=== PATIENT | female | born 2000 | race Caucasian/White ===

== ENCOUNTER 2022-08-30 10:06 | Emergency (ER) | payer SELFPAY ==
[2022-08-30 10:30] VITALS: BP 110/73; PULSE 62; RESP 20; TEMP 36.8; O2SAT 98; BMI 19.1
--- NOTE | 2022-08-30 11:26 | ED.NURSE ---
pt decided to leave without being seeing by ED doctor
== END 2022-08-30 12:49 | disposition left against medical advice (07) ==
PROVIDERS: Emergency Provider Emergency Medicine Emergency Medical Services
DX: Z53.21 Procedure and treatment not carried out due to patient leaving prior to being seen by health care provider (principal)

== ENCOUNTER 2023-03-17 19:20 | Outpatient (CLI) | payer BC, SELFPAY | END 2023-03-17 19:21 | disposition home or self-care (01) | LOC: AMB 03-20 10:42 | PROVIDERS: Visit Provider Family Medicine | DX: R07.89 Other chest pain (principal) | CPT/HCPCS: A0425; A0427 ==

== ENCOUNTER 2023-03-17 19:54 | Emergency (ER) | payer BC, SELFPAY ==
[2023-03-17] VITALS (18 sets, daily range): BP systolic 101–131; BP diastolic 53–69; PULSE 65–87; RESP 16; TEMP 36.7; O2SAT 95–100
--- NOTE | 2023-03-17 20:04 | ED.CHESTPAIN ---
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 She did a step aerobics class, completed at 6:30 p.m. and noticed some left chest pain that was sharp. It was in left side of her chest when into the left breast around her side, felt it in her shoulder and some in her neck. She did not feel short of breath with it but it did hurt with breathing. She has never had anything like this before. She has done this exercise class before. Pain resolved, lasted about 45 minutes. She did not take anything for it. She had COVID last year but has not been ill with any cough or cold symptoms. She was not short of breath with it. She had just completed exercise so her heart did feel like it was going fast but not any more so than it normally would. She is a nonsmoker. She did smoke some marijuana over the weekend and had alcohol. She does do this socially but not significantly. No illicit drug use otherwise. No abdominal symptoms. Patient is currently menstruating. MD complaint: chest pain Related Data Home Medications Medication Instructions Recorded Confirmed No Known Home Medications 08/30/22 09/26/22 Allergies Allergy/AdvReac Type Severity Reaction Status Date / Time No Known Drug Allergies Allergy Verified 09/26/22 16:09 Review of Systems Status of ROS Reports: 10 or more systems reviewed and unremarkable except as noted in History and below [facility] Social History Smoking Status: Never smoker Do you use any of these nicotine containing products: None Second hand tobacco smoke exposure: No How often do you have a drink containing alcohol: monthly or less How many standard drinks containing alcohol do you have on a typical day: 3 or 4 How often do you have six or more drinks on one occasion: Never AUDIT-C Alcohol total score: 2 Non-prescribed substance use: marijuana (any form) service: No Exam Const Vital Signs, click to edit/add: Vital Signs - 24 hr 03/17/23 20:00 03/17/23 20:22 03/17/23 20:34 Temperature 98.1 F Pulse Rate 83 78 Pulse Rate [Left Pulse Oximeter] 79 Respiratory Rate 16 Blood Pressure Blood Pressure [Right Upper Arm] 106/69 Pulse Oximetry 100 100 100 Oxygen Delivery Method Room Air 03/17/23 20:35 03/17/23 20:45 03/17/23 21:03 Temperature Pulse Rate 79 74 Pulse Rate [Left Pulse Oximeter] Respiratory Rate Blood Pressure 105/64 105/53 L Blood Pressure [Right Upper Arm] Pulse Oximetry 100 95 Oxygen Delivery Method 03/17/23 21:07 03/17/23 21:15 03/17/23 21:30 Temperature Pulse Rate 87 73 75 Pulse Rate [Left Pulse Oximeter] Respiratory Rate Blood Pressure Blood Pressure [Right Upper Arm] Pulse Oximetry 100 100 100 Oxygen Delivery Method 03/17/23 21:31 03/17/23 21:32 03/17/23 21:45 Temperature Pulse Rate 69 73 74 Pulse Rate [Left Pulse Oximeter] Respiratory Rate Blood Pressure 105/67 Blood Pressure [Right Upper Arm] Pulse Oximetry 100 100 100 Oxygen Delivery Method 03/17/23 22:04 03/17/23 22:05 03/17/23 22:15 Temperature Pulse Rate 79 69 Pulse Rate [Left Pulse Oximeter] Respiratory Rate Blood Pressure 131/55 L Blood Pressure [Right Upper Arm] Pulse Oximetry 99 100 Oxygen Delivery Method Documenting provider has reviewed patient's vital signs: yes Common normals: no apparent distress, average body habitus, oriented x3, no limitations, healthy appearing, alert and well nourished General appearance: cooperative, comfortable, well kempt and well developed Nutritional appearance: thin HENMT Common normals: normocephalic, head/scalp atraumatic, hearing grossly normal bilaterally, external ears normal, external nose normal, nasal mucous membranes and turbinates normal and moist oral mucous membranes Head and scalp: normocephalic and atraumatic Nose: external nose normal and nasal mucous membranes and turbinates normal External ear: external ears normal Eye Common normals: PERRL, EOMs intact bilaterally, conjunctivae normal and no scleral icterus Conjunctiva: conjunctiva(e) normal Pupil: PERRL Neck & C-Spine Common normals: full ROM, no lymphadenopathy, supple, no meningeal signs, no JVD and thyroid normal Thyroid: thyroid normal Chest Common normals: inspection of chest normal and palpation of chest normal Resp Common normals: normal respiratory effort, no retractions, no use of accessory muscles and clear to auscultation bilaterally Auscultation: clear to auscultation bilaterally Cardio Common normals: no JVD, regular rate, regular rhythm, S1 normal heart sound, S2 normal heart sound, no gallops, no clicks, no murmurs and no rub Rate: regular rate Rhythm: regular rhythm Heart sounds: S1 normal and S2 normal GI Common normals: Normal to inspection, nondistended, normoactive bowel sounds present, soft to palpation, non-tender, no hepatosplenomegaly and no masses Palpation: soft and no hepatosplenomegaly Extremity Other: No lower extremity edema. Neuro Common normals: oriented x3 Sensorium/orientation: alert Meningeal signs: no meningeal signs Psych Appearance: well kempt Course Course Hospital Course: Reviewed with patient that we will be having her on cardiac monitoring, pulse oximetry. Will obtain appropriate labs, EKG, portable chest x-ray. She is asymptomatic at this time. In her age group, more unlikely to be ischemic cardiac disease, thus I am not going to give her aspirin at this time. Have reviewed with her that we will likely be getting a 2nd troponin around 9:30 p.m., 3 hours after the episode to ensure no changing of the cardiac enzymes following [place] protocol. Reevaluation(s) Reevaluation #1: Have reviewed results with patient including review of EKGs with Cardiology, chest x-ray. This time she remains pain-free. She had a self-limited episode of pleuritic chest pain, undefined what this was but at her age and with the normal evaluation with done here, can discharge to home for further observation. Time: 22:34 Consultations Consultation #1: Did speak with Dr. Hattie Lopez at [facility], sent him the EKGs. He believes the 1st 1 to be a lead reversal given that there were also flipped P-waves as well as Q-waves in 1 and aVL. He would not recommend any further management at this time. Time: 22:22 Vital Signs Vital signs: Initial Vital Signs Temperature 98.1 F 03/17/23 20:00 Temperature Source Temporal Artery Scan 03/17/23 20:00 Pulse Rate 79 03/17/23 20:00 Pulse Rhythm Regular 03/17/23 20:00 Respiratory Rate 16 03/17/23 20:00 Blood Pressure 106/69 03/17/23 20:00 Blood Pressure Mean 81 03/17/23 20:00 Blood Pressure Position Semi-Fowlers 03/17/23 20:00 Pulse Oximetry 100 03/17/23 20:00 Oxygen Delivery Method Room Air 03/17/23 20:00 Vital Signs Temperature 98.1 F 03/17/23 20:00 Pulse Rate 79 03/17/23 20:00 Respiratory Rate 16 03/17/23 20:00 Blood Pressure 106/69 03/17/23 20:00 Pulse Oximetry 100 03/17/23 20:00 Oxygen Delivery Method Room Air 03/17/23 20:00 Temperature 98.1 F 03/17/23 20:00 Pulse Rate 69 03/17/23 22:15 Respiratory Rate 16 03/17/23 20:00 Blood Pressure 131/55 L 03/17/23 22:04 Pulse Oximetry 100 03/17/23 22:15 Oxygen Delivery Method Room Air 03/17/23 20:00 MDM - Chest Pain Lab Data Attestation: I reviewed the patient's lab results. Labs: Lab Results 03/17/23 03/17/23 Range/Units 20:26 21:30 WBC 6.99 (4.50-11.00) K/uL RBC 4.12 (4.00-5.20) m/uL Hgb 12.2 (12.0-16.0) gm/dL Hct 37.0 (33.0-51.0) % MCV 90 (80-100) fL MCH 30 (26-34) pg MCHC 33 (32-36) gm/dL RDW Coeff of [place] 13.7 (11.5-15.5) % Plt Count 230 (140-440) K/uL Neut % (Auto) 67.1 (42.0-72.0) % Lymph % (Auto) 26.5 (20-44) % [place] % (Auto) 5.4 (0.0-11.0) % Eos % (Auto) 0.6 (0.0-7.0) % Baso % (Auto) 0.4 (0.0-3.0) % Neut # (Auto) 4.69 (1.7-7.0) K/uL Lymph # (Auto) 1.85 (0.90-2.90) K/uL [place] # (Auto) 0.40 (0.00-0.90) K/UL Eos # (Auto) 0.04 (0.00-0.50) K/uL Baso # (Auto) 0.03 (0.00-0.30) K/uL D-Dimer Quant (PE/DVT) 0.31 (0.00-0.50) ug/ml Sodium 139 (135-149) mmol/L Potassium 4.7 (3.6-5.1) mmol/L Chloride 108 (96-114) mmol/L Carbon Dioxide 23 (20-32) mmol/L BUN 12 (5-24) mg/dL Creatinine 0.6 (0.5-1.5) mg/dL Estimated GFR 132 ml/min Glucose 99 (60-115) mg/dL Lactate 1.9 (0.5-1.9) mmol/L Calcium 9.8 (8.4-10.6) mg/dL Total Bilirubin 0.8 (0.1-1.5) mg/dL AST 32 (12-35) U/L ALT 22 (4-35) U/L Alkaline Phosphatase 67 (40-150) U/L Troponin I < 0.01 L (0.01-0.04) ng/mL C-Reactive Protein 0.7 (0.5-1.0) mg/dL NT-Pro-B Natriuret Pep 71 pg/mL Total Protein 7.5 (6.0-8.3) g/dL Albumin 4.6 (3.3-5.0) g/dL POC Troponin I 0.00 L 0.03 (0.01-0.04) ng/ml Imaging Data Chest x-ray: Attestation: I have reviewed the pertinent imaging results. My impression: I see no acute pathology on my preliminary review of her chest x-ray. Radiologist's impression: Patient: COMPA DELUCA Facility:?[facility] Patient ID:?[id number] Site Patient ID:?[id number]. Site :?[id number] Study:?XRay Chest PORTABLE-03/17/2023 9:37:10 PM Ordering Physician:?Suchomel-Akhtar Melanie Final Report: INDICATION: Chest pain. TECHNIQUE: Portable AP chest radiograph. COMPARISON: None available. FINDINGS: No focal pulmonary opacity, pneumothorax, or pleural effusion. Normal cardiac and mediastinal contours. IMPRESSION: No acute cardiopulmonary findings. Dictated by Cornelius Jorge MD @ 03/17/2023 10:02:37 PM Dictated by: Cornelius Jorge MD @ 03/17/2023 22:02:46 (Electronic Signature) ECG Data Attestation: I personally reviewed and interpreted this ECG as follows: (Normal sinus rhythm with sinus arrhythmia, 66 beats per minute. Flipped T-waves lead 1 and aVL without any ST segment changes. Flipped T-waves lead [address] segment change but normal 3 in AVF. Isolated flipped T-wave in V1.) ECG interpretation date: 03/17/23 ECG interpretation time: 20:19 Interpretation: EKG timed 9:29 p.m. is showing sinus rhythm with sinus arrhythmia, 76 beats per minute. There are no flipped T-waves outside of V1. Critical Care Time Critical Care Time Critical Care Time: No Discharge Plan Discharge Clinical Impression: Pleuritic chest pain Patient Disposition: Home, Self-Care Condition: Stable Instructions: Chest Pain (ED), Pleurisy (ED) Additional Instructions: It is not exactly clear what this spell of pain was for you tonight. At this time given that you are young and otherwise healthy, do think you can resume your normal activity. However, should you read developed these symptoms with exercise or activity, have new or concerning symptoms, would recommend re-evaluation. Activity Level: Activity as Tolerated Prescriptions: No Action No Known Home Medications Follow Up/Referrals: Provider,Not a Local [Primary Care Provider] - Stand Alone Forms: [employer] Info Instructions
--- NOTE | 2023-03-17 20:11 | CRLHL7_ITS ---
For Patients: As a result of the Cures Act, medical imaging exams and procedure reports are released immediately into your electronic medical record. You may view this report before your referring provider. If you have questions, please contact your health care provider. INDICATION: Chest pain. TECHNIQUE: Portable AP chest radiograph. COMPARISON: None available. FINDINGS: No focal pulmonary opacity, pneumothorax, or pleural effusion. Normal cardiac and mediastinal contours. IMPRESSION: No acute cardiopulmonary findings. Dictated by Cornelius Jorge MD @ 03/17/2023 10:02:37 PM Dictated by: Cornelius Jorge MD @ 03/17/2023 22:02:46 (Electronically Signed)
[2023-03-17 20:33] LABS: Lactate* 1.9 mmol/L (0.5-1.9)
[2023-03-17 20:35] LABS: Basophils Absolute Auto 0.03 K/uL (0.00-0.30); Basophils Percent Auto 0.4 % (0.0-3.0); Eosinophils Absolute Auto 0.04 K/uL (0.00-0.50); Eosinophils Percent Auto 0.6 % (0.0-7.0); Hemoglobin* 12.2 gm/dL (12.0-16.0); Lymphocytes Absolute Auto 1.85 K/uL (0.90-2.90); Lymphocytes Percent Auto 26.5 % (20-44); Mean Corpuscular HGB Conc 33 gm/dL (32-36); Mean Corpuscular Hemoglobin 30 pg (26-34); Mean Corpuscular Volume 90 fL (80-100); Monocytes Percent Auto 5.4 % (0.0-11.0); Neutrophils Absolute Auto 4.69 K/uL (1.7-7.0); Neutrophils Percent Auto 67.1 % (42.0-72.0); Platelet Count* 230 K/uL (140-440); RDW Coefficient of Variation % 13.7 % (11.5-15.5); Red Blood Count 4.12 m/uL (4.00-5.20); White Blood Count* 6.99 K/uL (4.50-11.00)
[2023-03-17 20:38] LABS: Slide Review Reflex No
[2023-03-17 21:02] LABS: Albumin* 4.6 g/dL (3.3-5.0); Chloride* 108 mmol/L (96-114)
[2023-03-17 21:03] LABS: Potassium* 4.7 mmol/L (3.6-5.1); Sodium* 139 mmol/L (135-149)
[2023-03-17 21:05] LABS: Creatinine* 0.6 mg/dL (0.5-1.5); Estimated Glomerular Filt Rate 132 ml/min
[2023-03-17 21:06] LABS: Alanine Aminotransferase* 22 U/L (4-35); Alkaline Phosphatase* 67 U/L (40-150); Aspartate Amino Transferase* 32 U/L (12-35); Bilirubin Total* 0.8 mg/dL (0.1-1.5); Blood Urea Nitrogen* 12 mg/dL (5-24); Calcium* 9.8 mg/dL (8.4-10.6); Carbon Dioxide* 23 mmol/L (20-32); Glucose* 99 mg/dL (60-115); Total Protein* 7.5 g/dL (6.0-8.3)
[2023-03-17 21:08] LABS: C Reactive Protein* 0.7 mg/dL (0.5-1.0)
[2023-03-17 21:09] LABS: D Dimer Quantitative* 0.31 ug/ml (0.00-0.50)
[2023-03-17 21:17] LABS: NT Pro B Type NatriureticPept* 71 pg/mL
[2023-03-17 21:20] LABS: Troponin I* < 0.01 ng/mL (0.01-0.04)
[2023-03-17 21:44] LABS: Troponin, Point-of-Care* 0.03 ng/ml (0.01-0.04)
--- NOTE | 2023-03-17 22:23 | ED.NURSE ---
Cardiology paged at [facility] per MD. currently speaking with cardiology.
== END 2023-03-17 22:44 | disposition home or self-care (01) ==
PROVIDERS: Emergency Provider Family Medicine
DX: R07.89 Other chest pain (principal)
CPT/HCPCS: 36415; 71045; 80053; 83605; 83880; 84484; 85025; 85379; 86140; 93005; 94761; 99284; 99285

== ENCOUNTER 2023-04-29 23:59 | Outpatient (CLI) | payer BC, SELFPAY | END 2023-04-30 | disposition home or self-care (01) | LOC: AMB 05-15 23:53 | PROVIDERS: Visit Provider Family Medicine | DX: F10.129 Alcohol abuse with intoxication, unspecified (principal) | CPT/HCPCS: A0425; A0429 ==

== ENCOUNTER 2023-08-15 00:28 | Outpatient (CLI) | payer BC, OTHER, SELFPAY | END 2023-08-15 00:29 | disposition home or self-care (01) | LOC: AMB 08-17 07:29 | PROVIDERS: Visit Provider Internal Medicine | DX: F10.129 Alcohol abuse with intoxication, unspecified (principal) | CPT/HCPCS: A0425; A0427 ==

== ENCOUNTER 2023-08-15 00:59 | Emergency (ER) | payer BC, SELFPAY ==
[2023-08-15 01:01] VITALS: BP 135/118; PULSE 90; RESP 22; TEMP 36.1; O2SAT 100
--- NOTE | 2023-08-15 01:05 | ED.ALCOHOL ---
HPI - Alcohol General Chief Complaint: Alcohol/Intoxication Stated Complaint: ETOH Time Seen by Provider: 08/15/23 01:05 History of Present Illness HPI narrative: Patient is a 23-year-old woman who has had way too much wine and fireball tonight. He goes to [employer] and was drinking in the dorm. She states that she does not have a long history of alcohol use. She states she is not . She is not having any pain but did have profound vomiting. She was brought in by EMS after receiving 150 mL of saline and 4 mg of Zofran. She is feeling much better but is clearly intoxicated. There has been no history of any trauma and the patient describes no pain. Related Data Home Medications Medication Instructions Recorded Confirmed No Known Home Medications 08/30/22 04/30/23 Allergies Allergy/AdvReac Type Severity Reaction Status Date / Time No Known Drug Allergies Allergy Verified 04/30/23 00:34 Review of Systems Status of ROS Reports: 10 or more systems reviewed and unremarkable except as noted in History and below PFSH [facility] Medical History No significant past medical history Surgical History No significant past surgical history Social History Smoking Status: Never smoker Do you use any of these nicotine containing products: None Second hand tobacco smoke exposure: No How often do you have a drink containing alcohol: monthly or less How many standard drinks containing alcohol do you have on a typical day: 3 or 4 How often do you have six or more drinks on one occasion: Never AUDIT-C Alcohol total score: 2 Non-prescribed substance use: marijuana (any form) service: No Exam Narrative: Exam Narrative: EXAM GENERAL: Patient appears to be intoxicated. EYES: No scleral icterus. ENT: Tympanic membranes and oropharynx normal. THYROID: no thyroid nodules or thyromegaly. LYMPH: No supraclavicular or cervical lymphadenopathy. SKIN: Visible skin seen during exam normal or with benign process only. EXT: No dependent lower extremity pedal edema. HEART: Regular rate and rhythm with no murmurs, rubs, or gallops. LUNGS: Clear to auscultation bilaterally with no crackles or wheezes. ABD: Soft, non tender, non distended. PSYCH: Good eye contact, speech is not pressured. Neurologic cranial nerves 2-12 grossly intact no focal defects. Const: Vital Signs, click to edit/add: Vital Signs - 24 hr 08/15/23 01:01 Temperature 96.9 F L Pulse Rate [Left P ulse Oximeter] 90 Respiratory Rate 22 Blood Pressure [Ri ght Upper Arm] 135/118 H Pulse Oximetry 100 Oxygen Delivery Me thod Room Air Course Course ED Course: Patient seen examined. Will plan to observe her carefully throughout the night and consider releasing her in the morning when she is able to care for herself. Vital Signs Vital signs: Initial Vital Signs Temperature 96.9 F L 08/15/23 01:01 Temperature Source Temporal Artery Scan 08/15/23 01:01 Pulse Rate 90 08/15/23 01:01 Pulse Rhythm Regular 08/15/23 01:01 Respiratory Rate 22 08/15/23 01:01 Blood Pressure 135/118 H 08/15/23 01:01 Blood Pressure Mean 123 H 08/15/23 01:01 Blood Pressure Position Semi-Fowlers 08/15/23 01:01 Pulse Oximetry 100 08/15/23 01:01 Oxygen Delivery Method Room Air 08/15/23 01:01 Vital Signs Temperature 96.9 F L 08/15/23 01:01 Pulse Rate 90 08/15/23 01:01 Respiratory Rate 22 08/15/23 01:01 Blood Pressure 135/118 H 08/15/23 01:01 Pulse Oximetry 100 08/15/23 01:01 Oxygen Delivery Method Room Air 08/15/23 01:01 Temperature 96.9 F L 08/15/23 01:01 Pulse Rate 90 08/15/23 01:01 Respiratory Rate 22 08/15/23 01:01 Blood Pressure 135/118 H 08/15/23 01:01 Pulse Oximetry 100 08/15/23 01:01 Oxygen Delivery Method Room Air 08/15/23 01:01 MDM - Alcohol MDM Narrative Medical decision making narrative: Patient is a 23-year-old woman who has been drinking heavily. She is brought in by EMS and we did observe her carefully overnight. She is now able to care for herself without further risk. She is counseled on the dangers of alcohol discharge back to campus. Differential Diagnosis Differential diagnosis: Likely alcohol withdrawal delirium, hypomagnesemia, alcohol intoxication and alcohol ketoacidosis Discharge Plan Discharge Clinical Impression: Alcoholic intoxication Patient Disposition: Home, Self-Care Condition: Stable Instructions: Abuse of Alcohol (ED) Additional Instructions: No further drinking Advanced diet activity as tolerated Activity Level: No Restrictions Discharge Diet: Regular Prescriptions: No Action No Known Home Medications Follow Up/Referrals: Provider,Not a Local [Primary Care Provider] - Stand Alone Forms: [employer] Info Instructions
[2023-08-15 05:52] VITALS: PULSE 80; RESP 18; O2SAT 99
== END 2023-08-15 05:55 | disposition home or self-care (01) ==
PROVIDERS: Emergency Provider Internal Medicine
DX: F10.129 Alcohol abuse with intoxication, unspecified (principal)
CPT/HCPCS: 99283

== ENCOUNTER 2023-09-17 09:09 | Emergency (ER) | payer BC, SELFPAY ==
[2023-09-17 09:15] VITALS: BP 111/66; PULSE 67; RESP 16; TEMP 37.1; O2SAT 100; BMI 19.6
--- NOTE | 2023-09-17 09:54 | ED_ITS ---
HPI - Dizziness General Chief Complaint: Dizziness/Vertigo Stated Complaint: dizzy, nausea Time Seen by Provider: 09/17/23 09:29 History of Present Illness HPI Narrative: This 23-year-old female was sent here from the [facility] because of recurrent lightheadedness symptoms over the past couple weeks. She states that she had COVID a month or so ago and recovered from symptoms but wonders if her lightheadedness is related to this. She states that she feels lightheaded o n various occasions. Sometimes this happens when standing up from a sitting position. She also states that she was laying down in seemed to have worse symptoms if she closed her eyes. She does have some occasional nausea related to the lightheadedness but does not have any vomiting, fever, altered bowel function. She does not take any medications and denies using any street drugs or alcohol. She arrives with normal vital signs but repeat blood pressure does show a systolic value of 104. She denies having any pain or headache. She did have her blood checked at the [facility] last week and it showed a blood glucose of 45 at that time. She is not on any glucose lowering medications. She denies having any weight loss or dysuria symptoms. Related Data Previous Rx's Medication Instructions Recorded ondansetron HCl 4 mg tablet 4 mg PO Q6H #20 tabs 09/17/23 Allergies Allergy/AdvReac Type Severity Reaction Status Date / Time No Known Drug Allergies Allergy Verified 04/30/23 00:34 Review of Systems Status of ROS: Reports: 10 or more systems reviewed and unremarkable except as noted in History and below Narrative: Constitutional: No fevers, no weight gain or loss. Eyes: No discharge. No vision changes. HENT: No congestion, no sore throat, no ear pain. Cardiovascular: No chest pain, no palpitations. Respiratory: No shortness of breath, no wheezes, no cough. Gastrointestinal: No abdominal pain, no vomiting, no diarrhea. Genitourinary: No dysuria, no hematuria. Musculoskeletal: Normal range of motion. Skin: No rashes, no pruritis. Neurological: No weakness, sensory change, speech change. Lightheadedness episodes as described above. Endo/Heme/Allergies: No bruising or bleeding. No polydipsia. Pysch: no suicidality, no anxiety, no insomnia. All other systems reviewed and are negative. PFSH PFS Medical History No significant past medical history Surgical History No significant past surgical history Social History Smoking Status: Never smoker Do you use any of these nicotine containing products: None Second hand tobacco smoke exposure: No How often do you have a drink containing alcohol: monthly or less How many standard drinks containing alcohol do you have on a typical day: 3 or 4 How often do you have six or more drinks on one occasion: Never AUDIT-C Alcohol total score: 2 Non-prescribed substance use: marijuana (any form) service: No Exam Narrative: Exam Narrative: Constitutional: Well-developed, well-nourished, no acute distress. HEENT: Normocephalic, atraumatic. Neck: Normal range of motion. Nontender. Supple. Heart: Regular. No murmurs. Normal rate. Intact distal pulses. Lungs: Clear to auscultation. No chest discomfort. No wheezes, rhonchi, or rales. Abdomen: Normal bowel sounds. Nontender. No rebound tenderness. Genitalia: Deferred. Back: No midline tenderness. Normal range of motion. Extremities: Normal range of motion. No injury. Skin: Intact. No rash. Warm. No erythema or pallor. Neurologic: No altered sensation. No weakness. Alert and oriented. Psychiatric: No suicidality. No anxiety or depression. No insomnia. Nursing notes and vitals signs are reviewed. Const: Vital Signs, click to edit/add: Vital Signs - 24 hr 09/17/23 09:15 Temperature 98.7 F Pulse Rate [Pulse Oximeter] 67 Respiratory Rate 16 Blood Pressure [Le ft Upper Arm] 111/66 Pulse Oximetry 100 Oxygen Delivery Me thod Room Air Course Vital Signs Vital signs: Initial Vital Signs Temperature 98.7 F 09/17/23 09:15 Temperature Source Temporal Artery Scan 09/17/23 09:15 Pulse Rate 67 09/17/23 09:15 Pulse Rhythm Regular 09/17/23 09:15 Respiratory Rate 16 09/17/23 09:15 Blood Pressure 111/66 09/17/23 09:15 Blood Pressure Mean 81 09/17/23 09:15 Blood Pressure Position Supine 09/17/23 09:15 Pulse Oximetry 100 09/17/23 09:15 Oxygen Delivery Method Room Air 09/17/23 09:15 Vital Signs Temperature 98.7 F 09/17/23 09:15 Pulse Rate 67 09/17/23 09:15 Respiratory Rate 16 09/17/23 09:15 Blood Pressure 111/66 09/17/23 09:15 Pulse Oximetry 100 09/17/23 09:15 Oxygen Delivery Method Room Air 09/17/23 09:15 Temperature 98.7 F 09/17/23 09:15 Pulse Rate 67 09/17/23 09:15 Respiratory Rate 16 09/17/23 09:15 Blood Pressure 111/66 09/17/23 09:15 Pulse Oximetry 100 09/17/23 09:15 Oxygen Delivery Method Room Air 09/17/23 09:15 MDM - Dizziness MDM Narrative Medical decision making narrative: This patient comes in reporting symptoms of lightheadedness occasionally with some associated nausea. She was instructed to come here for further evaluation as she had been to the [facility] and saw a nurse practitioner there. The patient states that she had COVID about a month ago and these symptoms have arisen since then. I did recheck her labs today and these returned with reassuring results. Additionally a CT scan of her head is obtained which is negative for any acute findings. The patient did have some nausea symptoms while visiting here and did improve after getting an oral dose of Zofran. She was able to take food and drink. Her vital signs have remained normal. Her symptoms may be residual affects from her COVID infection. She is okay to be discharged home and did receive a prescription for Zofran. Lab Data Labs: Lab Results 09/17/23 Range/Units 10:03 WBC 7.87 (4.50-11.00) K/uL RBC 4.22 (4.00-5.20) m/uL Hgb 13.0 (12.0-16.0) gm/dL Hct 38.6 (33.0-51.0) % MCV 92 (80-100) fL MCH 31 (26-34) pg MCHC 34 (32-36) gm/dL RDW Coeff of [place] 13.0 (11.5-15.5) % Plt Count 199 (140-440) K/uL Neut % (Auto) 74.2 H (42.0-72.0) % Lymph % (Auto) 17.2 L (20-44) % [place] % (Auto) 7.2 (0.0-11.0) % Eos % (Auto) 0.9 (0.0-7.0) % Baso % (Auto) 0.4 (0.0-3.0) % Neut # (Auto) 5.80 (1.7-7.0) K/uL Lymph # (Auto) 1.40 (0.90-2.90) K/uL [place] # (Auto) 0.60 (0.00-0.90) K/UL Eos # (Auto) 0.07 (0.00-0.50) K/uL Baso # (Auto) 0.03 (0.00-0.30) K/uL Abs Immat Gran (auto) 0.01 (0.00-0.30) K/uL Imm/Tot Granulo (auto) 0.1 % Sodium 141 (135-149) mmol/L Potassium 4.1 (3.6-5.1) mmol/L Chloride 102 (96-114) mmol/L Carbon Dioxide 23 (20-32) mmol/L Anion Gap 16 H (7-15) mEq/L BUN 11 (5-24) mg/dL Creatinine 0.6 (0.5-1.5) mg/dL Estimated Creat Clear 125.32 Estimated GFR 131 ml/min Glucose 79 (60-115) mg/dL Calcium 9.6 (8.4-10.6) mg/dL C-Reactive Protein < 0.5 L (0.5-1.0) mg/dL HCG, Qual Negative (Negative) Imaging Data CT scan - head: Radiologist's impression: Minimal left frontal subgaleal soft tissue swelling. Correlate with history of recent trauma. Otherwise, no acute intracranial abnormalities are appreciated. Discharge Plan Discharge Clinical Impression: Episodic lightheadedness, Nausea Patient Disposition: Home, Self-Care Condition: Stable Additional Instructions: Take medication as prescribed and needed. Activity as tolerated. Follow up with MD or return if worsening. Prescriptions: New ondansetron HCl 4 mg tablet 4 mg PO Q6H Qty: 20 0RF Follow Up/Referrals: Provider,Not a Local [Primary Care Provider] - Stand Alone Forms: [employer] Info Instructions
--- NOTE | 2023-09-17 09:54 | CRLHL7_ITS ---
For Patients: As a result of the Century Cures Act, medical imaging exams and procedure reports are released immediately into your electronic medical record. You may view this report before your referring provider. If you have questions, please contact your health care provider. Indication: Lightheadedness x2 weeks Technique: Volumetric multidetector CT images of the head were obtained without the administration of low osmolar intravenous contrast. Comparison: None available Findings: There is no intra-axial or extra-axial fluid collection. There is no mass effect or midline shift. The ventricles and sulci are normal in size and position for age. The brain parenchyma is grossly preserved in attenuation and stevenson-white differentiation. The orbits and their contents are grossly within normal limits. Mild left frontal soft tissue swelling. The frontal calvarium is grossly intact. The paranasal sinuses are clear. The mastoid air cells are well aerated. Impression: Minimal left frontal subgaleal soft tissue swelling. Correlate with history of recent trauma. Otherwise, no acute intracranial abnormalities are appreciated. Please note that all CT scans at this facility use dose modulation, iterative reconstruction, and/or weight-based dosing when appropriate to reduce radiation dose to as low as reasonably achievable. Dictated by Jeromy Nichols MD @ 09/17/2023 11:07:26 AM (Electronically Signed)
[2023-09-17 10:16] LABS: Basophils Absolute Auto 0.03 K/uL (0.00-0.30); Basophils Percent Auto 0.4 % (0.0-3.0); Eosinophils Absolute Auto 0.07 K/uL (0.00-0.50); Eosinophils Percent Auto 0.9 % (0.0-7.0); Hematocrit 38.6 % (33.0-51.0); Immature Granulocytes Abs Auto 0.01 K/uL (0.00-0.30); Immature Granulocytes Pct Auto 0.1 %; Lymphocytes Percent Auto 17.2 % (20-44); Mean Corpuscular HGB Conc 34 gm/dL (32-36); Mean Corpuscular Hemoglobin 31 pg (26-34); Mean Corpuscular Volume 92 fL (80-100); Monocytes Percent Auto 7.2 % (0.0-11.0); Neutrophils Percent Auto 74.2 % (42.0-72.0); Platelet Count* 199 K/uL (140-440); Red Blood Count 4.22 m/uL (4.00-5.20); Slide Review Reflex No; White Blood Count* 7.87 K/uL (4.50-11.00)
[2023-09-17 10:28] LABS: Chloride* 102 mmol/L (96-114); Sodium* 141 mmol/L (135-149)
[2023-09-17 10:29] LABS: Potassium* 4.1 mmol/L (3.6-5.1)
[2023-09-17 10:31] LABS: Creatinine* 0.6 mg/dL (0.5-1.5); Est. Creatinine Clearance* 125.32; Estimated Glomerular Filt Rate 131 ml/min
[2023-09-17 10:32] LABS: Anion Gap 16 mEq/L (7-15); Blood Urea Nitrogen* 11 mg/dL (5-24); Carbon Dioxide* 23 mmol/L (20-32); Glucose* 79 mg/dL (60-115); HCG Qualitative Serum* Negative (Negative)
[2023-09-17 10:33] LABS: Calcium* 9.6 mg/dL (8.4-10.6)
[2023-09-17 10:38] LABS: C Reactive Protein* < 0.5 mg/dL (0.5-1.0)
[2023-09-17] MEDS: ONDANSETRON ODT 4 MG TAB PO (11:50)
[2023-09-17 12:00] VITALS: BP 106/70; PULSE 65; RESP 20; O2SAT 98
== END 2023-09-17 12:23 | disposition home or self-care (01) ==
PROVIDERS: Emergency Provider Emergency Medicine Emergency Medical Services
DX: R42 Dizziness and giddiness (principal); R11.0 Nausea
CPT/HCPCS: 36415; 70450; 80048; 84703; 85025; 86140; 99284; A9270